=== PATIENT | male | born 1960 | race Caucasian/White ===

== ENCOUNTER 2020-08-28 19:03 | Emergency (ER) | payer BC, SELFPAY ==
--- NOTE | ~2020-08-28 | XR_ITS ---
XR chest 2V 08/28/2020 20:17 Indication: Intermittent chest pain Procedure: 2 view chest Comparison: 11/22/2018 Findings: There are multiple healed left rib fractures. No focal air space disease, pulmonary edema, pleural effusion or suspected pneumothorax. No acute osseous abnormality. The lungs are hyperinflated which is consistent with, but not diagnostic of chronic obstructive pulmonary disease. Impression: 1: No acute cardiopulmonary disease. Reviewed, dictated and finalized at location A. ICS PROFESSOR Impression: 1: No acute cardiopulmonary disease.
[2020-08-28 19:08] VITALS: BP 157/93; PULSE 73; RESP 18; TEMP 37; O2SAT 97
--- NOTE | 2020-08-28 19:11 | ECG_ITS ---
Measurements Intervals [place] Rate: 76 P: 42 RI: 215 QRS: -34 QRSD: 97 T: 39 QT: 365 QTc: 411 Interpretive Statements SINUS RHYTHM WITH FIRST DEGREE AV BLOCK LEFT AXIS DEVIATION ABNORMAL ECG Electronically Signed On 09-04-2020 15:59:03 [employer]OR INST[employer]ER by Jonathan De Jesus D.O.
--- NOTE | 2020-08-28 19:37 | ED.CHESTPAIN ---
HPI - Chest Pain General Chief Complaint: Chest Pain Stated Complaint: CP Time Seen by Provider: 08/28/20 19:37 Source: patient and EMS Mode of arrival: EMS Limitations: no limitations History of Present Illness HPI narrative: Patient is a 60-year-old male with a history of hypertension, type 2 diabetes, hiatal hernia, acid reflux who presents for evaluation of chest pain. Patient reports intermittent chest pain that originally began around noon today after the patient ate pizza. He states initially he thought the symptoms were secondary to indigestion or esophageal spasm which he has had in the past, when initially some antacids and fluids relieve the pain. Patient however did experience some radiation of pain to his back, and then began to experience some anxiety with associated tingling in both hands and both legs this evening. Patient denied any shortness of breath. He reports mild, dull aching pain described as a pressure currently on his epigastrium. It has been intermittent since 1 PM today. He denies any fever or diaphoresis. Patient denies history of heart attack or heart problem in the past. Patient states symptoms seem consistent with his typical esophageal spasm and reflux. No radiation of the pain to the jaw or shoulder blades. No associated palpitations or pleuritic chest pain. Related Data Allergies Allergy/AdvReac Type Severity Reaction Status Date / Time No Known Allergies Allergy Unverified 10/08/16 13:54 Review of Systems Review of Systems: Narrative: CONSTITUTIONAL: Denies fever, chills, or sweats. EYES: Denies visual changes, redness, or discharge. ENT: Denies rhinorrhea, congestion, sore throat, or otalgia. CARDIOVASCULAR: Reports chest pain without palpitations or edema RESPIRATORY: Denies cough or dyspnea. GASTROINTESTINAL: Denies abdominal pain, nausea, vomiting, or diarrhea. GENITOURINARY: Denies dysuria or hematuria. SKIN: Denies rash or itching. MUSCULOSKELETAL: Denies back pain, joint pain, or myalgia. NEUROLOGIC: Denies headache, numbness, or weakness. [facility] Past Medical History Medical History (Updated 08/28/20 @ 21:34 by Mariia Diaz MD) Acid reflux Asthma Hiatal hernia Type 2 diabetes mellitus Surgical History Surgical History (Updated 08/28/20 @ 19:56 by Mariia Diaz MD) History of appendectomy Social History Social History (Updated 08/28/20 @ 19:57 by Mariia Diaz MD) Smoking status: Former smoker Tobacco type: cigarettes Alcohol intake: never Substance use: never Living arrangements: with family Gender identity (if verbalized by the patient): Male Exam Narrative: Exam Narrative: GENERAL: Awake, alert, conversant HEAD: Normocephalic, atraumatic. EYES: PERRLA and EOMI. ENT: Nares clear, no rhinorrhea or epistaxis. Mucous membranes moist. NECK: Supple. CHEST: No respiratory distress, breathing even and non labored, no reproducible chest wall tenderness HEART: Regular rate, sinus rhythm ABDOMEN:Non distended, non tender EXTREMITIES: Normal range of motion. No edema. SKIN: Warm, dry, no rash. NEURO:No focal deficits. Alert and oriented x3 Course Vital Signs Vital signs: Vital Signs Temperature 37.0 C 08/28/20 19:08 Pulse Rate 73 08/28/20 19:08 Respiratory Rate 18 08/28/20 19:08 Blood Pressure 157/93 H 08/28/20 19:08 Pulse Oximetry 97 08/28/20 19:08 Temperature 37.0 C 08/28/20 19:08 Pulse Rate 78 08/28/20 21:40 Respiratory Rate 18 08/28/20 21:40 Blood Pressure 139/89 08/28/20 21:40 Pulse Oximetry 99 08/28/20 21:40 MDM - Chest Pain MDM Narrative Medical decision making narrative: Patient presented for evaluation of chest pain. The time of initial assessment, ABCs are intact and vital signs are stable. No ST elevation or ischemic type changes on initial EKG. Patient is reporting a lot of similarities to his indigestion, he has had symptoms greater than several hours at this point. However, give
[2020-08-28 20:03] LABS: Basophils Absolute Auto 0.1 K/mm3 (0.0-0.1); Basophils Percent Auto 0.8 % (0.2-1.2); Eosinophils Absolute Auto 0.3 K/mm3 (0-0.3); Eosinophils Percent Auto 4.9 % (0-4.4); Hematocrit 39.5 % (42.0-52.0); Hemoglobin 13.8 g/dL (14.0-18.0); Immature Granulocyte Absolute 0.02 K/mm3 (0.00-0.031); Immature Granulocyte Percent A 0.3 % (0-0.5); Lymphocytes Absolute Auto 1.08 K/mm3 (0.9-3.2); Lymphocytes Percent Auto 18.3 % (18.3-44.2); Mean Corpuscular HGB Conc 34.9 g/dl (32-36); Mean Corpuscular Hemoglobin 34.5 pg (26-34); Mean Corpuscular Volume 98.8 fl (80-100); Monocytes Absolute Auto 0.6 K/mm3 (0.1-0.6); Neutrophils Absolute Auto 3.9 K/mm3 (1.3-6.7); Neutrophils Percent Auto 65.7 % (45.5-73.1); Platelet Count Result 174 k/mm3 (150-375); Red Cell Distribution Width 12.3 % (11.5-14.5); White Blood Count 5.9 K/mm3 (4.5-10.0)
[2020-08-28] MEDS: BELLADONNA ALK/PHENOB ELIX 10 ML, MAG HYDROX/ALUMINUM HYD/SIMETH 30 ML, LIDOCAINE HCL 2... PO (20:17)
[2020-08-28 20:18] LABS: INR 1.1; Partial Thromboplastin Time 27.6 SECONDS (22.3-36.8); Prothrombin Time 14.4 Seconds (11.1-14.7)
[2020-08-28 20:19] VITALS: BP 147/102; PULSE 75; RESP 12; O2SAT 97
[2020-08-28 20:27] LABS: Anion Gap 9 mmol/L (8-16); Blood Urea Nitrogen 12 mg/dL (9-20); Calcium 9.7 mg/dL (8.4-10.2); Carbon Dioxide 26 mmol/L (22-30); Chloride 95 mmol/L (98-107); Estimated CRCL calculation 111 ml/min; Estimated Glomerular Filt Rate > 60; Glucose 124 mg/dL (75-110); Potassium 3.7 mmol/L (3.4-5.0); Sodium 130 mmol/L (137-145)
[2020-08-28 20:39] LABS: Troponin I < 0.012 ng/mL (0.000-0.034)
[2020-08-28 21:40] VITALS: BP 139/89; PULSE 78; RESP 18; O2SAT 99
== END 2020-08-28 21:42 | disposition home or self-care (01) ==
PROVIDERS: Emergency Provider Emergency Medicine
DX: R07.89 Other chest pain (principal); K21.9 Gastro-esophageal reflux disease without esophagitis; I10 Essential (primary) hypertension; E11.9 Type 2 diabetes mellitus without complications; J45.909 Unspecified asthma, uncomplicated; Z87.891 Personal history of nicotine dependence
CPT/HCPCS: 36415; 71046; 80048; 84484; 85025; 85610; 85730; 93005; 99284; A9270

== ENCOUNTER → 2023-09-22 11:03 | Outpatient (CLI) | payer BC, SELFPAY ==
--- NOTE | ~2023-09-22 | XR_ITS ---
Right Shoulder Technique: AP and axillary views were obtained. Clinical History: Pain Findings: No fracture or dislocation is seen. Osseous alignment is anatomic. There is [id number] e AC joint degenerative change. Glenohumeral joint is preserved. Soft tissues are unremarkable. Impression: Ifsk-vf-vutxkzme AC joint degenerative change. Reviewed, dictated and finalized at location . VITY COORDINATOR Impression: Lzph-ce-lsiloiln AC joint degenerative change.
--- NOTE | ~2023-09-22 | XR_ITS ---
Right Humerus Technique: AP and lateral views were obtained. Clinical History: Pain Findings: No fracture or dislocation is seen. Osseous alignment is anatomic. Visualized joint spaces are grossly preserved there is [id number]-[id number] AC joint degenerative change. Remaining joint spaces are intact. Soft tissues are unremarkable. Impression: Udnm-hc-[id number] AC joint degenerative change. Reviewed, dictated and finalized at location . FICO BUSINESS ANALYST Impression: Xrrg-sx-ksklovyn AC joint degenerative change.
--- NOTE | ~2023-09-22 | XR_ITS ---
XR cervical spine min 6V DATE: 09/22/2023 11:57 INDICATION: Osteophytes TECHNIQUE: AP, open-mouth, lateral, swimmer views. Bilateral oblique views. Flexion and extension lat eral views. COMPARISON: None FINDINGS: There is osteopenia. There is straightening of the cervical spine. There is straightening of the cervical spinal which may be due to muscle spasm. C1 and C2 are normally aligned and the odontoid process is intact. C2-3 interspace is well preserved. Moderate loss of height of C3-4 interspace and mild anterior spurring. C4-5 interspace is well preserved but there is mild anterior and minimal posterior spurring. There is approximately 1-1.5 mm anterolisthesis at C4-5 and neutral and flexion, reduced in extension . There is moderately severe degenerative disc disease at C5-6 with prominent anterior and mild spurrin g burning. There is severe degenerative disc disease and prominent anterior posterior spurring at C6-7. There is uncovertebral joint spurring encroaching prominently upon the bilateral C6 and C7 neural for christophe. There is degenerative spurring at the apophyseal joints, encroaching in particular upon the posterior aspect of the right C3 and C4 neural foramina. No fracture or dislocation or locked facet or prevertebral soft tissue swelling. IMPRESSION: Prominent cervical spondylosis Straightening of the cervical spine which may be due to muscle spasm Osteopenia Reviewed, dictated and finalized at location B. OR SKIN BUFFER
== END ==
PROVIDERS: PCP Chiropractor; Visit Provider Chiropractor
DX: M19.011 Primary osteoarthritis, right shoulder (principal); M43.02 Spondylolysis, cervical region; M43.8X2 Other specified deforming dorsopathies, cervical region; M85.80 Other specified disorders of bone density and structure, unspecified site
CPT/HCPCS: 72052; 73030; 73060